=== PATIENT | female | born 1960 | race Caucasian/White ===

== ENCOUNTER 2021-10-12 17:10 | Emergency (ER) | payer OTHER ==
[~2021-10-12] VITALS: Ht 167.6 cm; Wt 104.0 kg
[2021-10-12 17:18] VITALS: BP 178/96
[2021-10-12] MEDS ORDERED: TETRACAINE 0.5% OPHTH DROPS 4ML EACHEYE ONE (18:45)
[2021-10-12] MEDS ORDERED: TETRACAINE 0.5% OPHTH DROPS 4ML BOTHEYE ONE (18:45)
[2021-10-12] MEDS ORDERED: FLUORESCEIN SODIUM 1MG/STRIP BOTHEYE ONE (18:45)
[2021-10-12] MEDS ORDERED: PEG15DRO14 EACHEYE (19:08)
== END 2021-10-12 19:25 | disposition home or self-care (01) ==
LOC: ER 17:10
DX: H57.13 Ocular pain, bilateral (principal); R07.9 Chest pain, unspecified; M19.90 Unspecified osteoarthritis, unspecified site; T75.89XA Other specified effects of external causes, initial encounter; X58.XXXA Exposure to other specified factors, initial encounter; Y93.89 Activity, other specified; Y92.9 Unspecified place or not applicable
CPT/HCPCS: 93005; 99283